=== PATIENT | male | born 2000 | race Caucasian/White ===

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

== ENCOUNTER 2019-04-29 13:27 | Emergency (ER) | payer OTHER ==
[2019-04-29 13:46] VITALS: BP 123/68
[2019-04-29] MEDS ORDERED: Ibuprofen TAB* 600 MG PO ONE (14:00)
--- NOTE | 2019-04-29 14:11 | UC ---
Respiratory Complaint HPI - HPI Summary HPI Summary: PATIENT WITH SEVERAL DAYS OF DEEP, CHESTY PRODUCTIVE COUGH, FATIGUE AND DIZZINESS. HAD SORE THROAT INITIALLY BUT STATES THAT IS NOW IMPROVED. ONE OF HIS CLOSE FRIENDS HAS PNEUMONIA. NO FEVER AT HOME ALTHOUGH TEMPERATURE 100.1 HERE IN THE UC. - History of Current Complaint Chief Complaint: UCRespiratory Stated Complaint: COUGH, Time Seen by Provider: 04/29/19 13:54 Hx Obtained From: Patient Onset/Duration: Gradual Onset, Lasting Days, Still Present Timing: Constant Severity Initially: Moderate Severity Currently: Moderate Pain Intensity: 7 Pain Scale Used: 0-10 Numeric Character: Cough: Productive Aggravating Factors: Nothing Alleviating Factors: Nothing Associated Signs And Symptoms: Positive: Fever, Chills, Pleuritic Chest Pain, Nasal Congestion. Negative: Dyspnea, Wheezing - Allergies/Home Medications Allergies/Adverse Reactions: Allergies Allergy/AdvReac Type Severity Reaction Status Date / Time No Known Allergies Allergy Verified 04/29/19 13:46 Home Medications: Home Medications Ascorbic Acid/Multivit-Min [Emergen-C 1,000 mg Packet] 1 dose PO DAILY 04/29/19 [History Confirmed 04/29/19] Oregano Oil [Oil of Oregano] 1 dose PO DAILY 04/29/19 [History Confirmed ] Unca Homeopathic 1 tab PO DAILY 04/29/19 [History Confirmed 04/29/19] Zicam 1 tab PO DAILY 04/29/19 [History Confirmed 04/29/19] PMH/Surg Hx/FS Hx/Imm Hx Respiratory History: Asthma - Surgical History Surgical History: None - Family History Known Family History: Positive: Hypertension, Diabetes - Social History Alcohol Use: Occasionally Substance Use Type: Marijuana Smoking Status (MU): Never Smoked Tobacco - Immunization History Vaccination Up to Date: Yes Review of Systems All Other Systems Reviewed And Are Negative: Yes Constitutional: Positive: Fever, Chills, Fatigue ENT: Positive: Sore Throat, Nasal Discharge Respiratory: Positive: Cough Cardiovascular: Positive: Negative Gastrointestinal: Positive: Negative Physical Exam Triage Information Reviewed: Yes Appearance: Well-Appearing, No Pain Distress, Well-Nourished Vital Signs: Initial Vital Signs Temp 100.1 F 04/29/19 13:42 Pulse 109 04/29/19 13:42 Resp 20 04/29/19 13:42 BP 123/68 04/29/19 13:42 Pulse Ox 97 04/29/19 13:42 Vital Signs Reviewed: Yes Eyes: Positive: Conjunctiva Clear ENT: Positive: Hearing grossly normal, Pharynx normal, TMs normal Neck: Positive: Supple, Nontender, Enlarged Nodes @ - SHOTTY SPFL CERVICAL LAD Respiratory Exam: Normal Cardiovascular: Positive: Tachycardia Abdomen Description: Positive: Soft Musculoskeletal: Positive: No Edema Neurological: Positive: Alert Psychological: Positive: Normal Response To Family, Age Appropriate Behavior Skin: Negative: Rashes Diagnostics - Radiology CXR Radiology Interpretation Completed By: Radiologist Summary of Radiographic Findings: NO ACTIVE CARDIOPULMONARY DISEASE. Respiratory Course/Dx - Differential Dx/Diagnosis Provider Diagnosis: Acute viral syndrome Discharge ED - Sign-Out/Discharge Documenting (check all that apply): Patient Departure All imaging exams completed and their final reports reviewed: Yes - Discharge Plan Condition: Stable Disposition: HOME Patient Education Materials: Viral Syndrome (ED) Forms: *School Release Referrals: Yonatan Sofia MD [Primary Care Provider] - If Needed Additional Instructions: CHEST X-RAY TODAY UNREMARKABLE. YOUR SYMPTOMS ARE CONSISTENT WITH A VIRAL FLU- LIKE ILLNESS. YOUR SYMPTOMS SHOULD RESOLVE ON THEIR OWN WITH TIME. NO INDICATION FOR ANTIBIOTICS AT PRESENT. REST, HYDRATE, OTC MEDS NEEDED. SEEK FOLLOW-UP IF YOU ARE NOT IMPROVING OVER THE NEXT 1-2 WEEKS. - Billing Disposition and Condition Condition: STABLE Disposition: Home
== END 2019-04-29 14:54 | disposition home or self-care (01) ==
LOC: UCEAST 13:27
DX: R05 Cough (principal); J45.909 Unspecified asthma, uncomplicated
CPT/HCPCS: 71046; A9270-GY